=== PATIENT | female | born 2000 | race American Indian/Alaskan Native ===

== ENCOUNTER 2019-09-18 17:29 | Emergency (ER) | payer MEDICAID ==
[2019-09-18 19:48] VITALS: BP 128/75
[2019-09-18] MEDS ORDERED: ACETAMINOPHEN 325 MG TAB PO ONE (19:48)
--- NOTE | 2019-09-18 19:50 | Event Note ---
ED Screening Note Date of service: 09/18/19 Time: 19:46 ED Screening Note: 19 y old female presents with sharp, backache and hip, LMP: Depo provera fver: 102F This initial assessment/diagnostic orders/clinical plan/treatment(s) is/are subject to change based on patients health status, clinical progression and re- assessment by fellow clinical providers in the ED. Further treatment and workup at subsequent clinical providers discretion. Patient/guardian urged not to elope from the ED as their condition may be serious if not clinically assessed and managed. Initial orders include: tylenol in traige ua,upt, acc eval
[2019-09-18] MEDS ORDERED: ACETAMINOPHEN 325 MG TAB ONE (19:51)
[2019-09-18] MEDS ORDERED: SUMAtriptan SUCCINATE 6 MG/0.5 ML INJ SUB-Q ONE (21:44)
--- NOTE | 2019-09-18 21:48 | Emergency Department Report ---
ED General Adult HPI - General Chief complaint: Headache Stated complaint: HEADACHE/BACK PAIN Time Seen by Provider: 09/18/19 21:39 Source: patient Mode of arrival: Ambulatory Limitations: No Limitations - History of Present Illness Initial comments: 19-year-old -[place] female with a known history of migraines comes in for complaint of headache and body aches back pain. Patient reports that she's had a headache and back pain for 6 months since she delivered her baby. Patient also complains of body aches chills and fever with cough and a little sore throat times today. Patient reports that when she takes ibuprofen it makes her headache 10 times worse. Patient states that she usually just suffers from her headaches. Patient did get Tylenol in triage and she reports that did not help with her headache and it made her sweat. Patient denies any nausea vomiting. Recheck patient's pulse 109 by this provider Onset/Timin -: days(s) (fever chills cough and sore throat), month(s) (6 months of headache and back pain since delivery of her baby) Severity scale (0 -10): 9 - Related Data Allergies Allergy/AdvReac Type Severity Reaction Status Date / Time diphenhydramine Allergy Hives Verified 09/18/19 17:49 [From Benadryl] ED Review of Systems ROS: Stated complaint: HEADACHE/BACK PAIN Other details as noted in HPI ED Past Medical Hx - Past Medical History Previous Medical History?: No - Surgical History Past Surgical History?: No - Social History Smoking Status: Current Every Day Smoker Substance Use Type: Marijuana ED Physical Exam - General Limitations: No Limitations ED Course Vital Signs 09/18/19 09/18/19 19:20 19:45 Temperature 103.0 F H 101.9 F H Pulse Rate 114 H 118 H Respiratory 18 18 Rate Blood Pressure 128/75 Blood Pressure 128/75 [Right] O2 Sat by Pulse 95 96 Oximetry - Reevaluation(s) Reevaluation #1: 09/18/19 23:50 Patient reports headache is gone after having Imitrex ED Medical Decision Making - Radiology Data Radiology results: report reviewed Patient: TITO ORTIZ MR#: [id number] : 2000 Acct:[id number] Age/Sex: 19 / F ADM Date: 09/18/19 Loc: ED Attending Dr: Ordering Physician: JESSICA OAKES Date of Service: 09/18/19 Procedure(s): XR chest routine 2V Accession Number(s): [id number] cc: JESSICA OAKES Fluoro Time In Minutes: CHEST 2 VIEWS INDICATION / CLINICAL INFORMATION: cough, fever. COMPARISON: None available. FINDINGS: SUPPORT DEVICES: None. HEART / MEDIASTINUM: No significant abnormality. LUNGS / PLEURA: No significant pulmonary or pleural abnormality. No pneumothorax. ADDITIONAL FINDINGS: No significant additional findings. IMPRESSION: 1. No acute findings. Signer Name: Miah Pope MD Signed: 09/18/2019 11:24 PM Workstation Name: [id number] Transcribed By: RADHA Dictated By: Miah Pope MD Electronically Authenticated By: Miah Pope MD Signed Date/Time: 09/18/192323 DD/ 23 TD/TT: - Medical Decision Making 19-year-old -[place] female with a known history of migraines comes in for complaint of headache and body aches back pain. Patient reports that she's had a headache and back pain for 6 months since she delivered her baby. Patient also complains of body aches chills and fever with cough and a little sore throat times today. Patient reports that when she takes ibuprofen it makes her headache 10 times worse. Patient states that she usually just suffers from her headaches. Patient did get Tylenol in triage and she reports that did not help with her headache and it made her sweat. Patient denies any nausea vomiting. Recheck patient's pulse 109 by this provider. Urinalysis and hCG pending for chest x-ray. Patient be given subcutaneous Imitrex for relief of headache. This most likely has a viral infection. Critical care attestation.: If time is entered above; I have spent that time in minutes in the direct care of this critically ill patient, excluding procedure time. ED Disposition Clinical Impression: Headache, Body aches Disposition: -01 TO HOME OR SELFCARE Is pt being admited?: No Does the pt Need Aspirin: No Condition: Stable Instructions: Acute Headache (ED) Referrals: PRIMARY MD OSITO [Primary Care Provider] - 3-5 Days JUDIE LIU MD [Referring] - 3-5 Days Forms: Work/School Release Form(ED)
[2019-09-18 22:51] LABS: Bilirubin,Urine NEG (Negative); Blood,Urine LG (Negative); Color,Urine Yellow (Yellow); HCG Qualitative,Urine Negative (Negative); Mucus,Urine 2+ /HPF; Protein,Urine <15 mg/dL mg/dL (Negative); Urobilinogen,Urine < 2.0 mg/dL (<2.0)
--- NOTE | 2019-09-18 23:29 | XRay Report ---
CHEST 2 VIEWS INDICATION / CLINICAL INFORMATION: cough, fever. COMPARISON: None available. FINDINGS: SUPPORT DEVICES: None. HEART / MEDIASTINUM: No significant abnormality. LUNGS / PLEURA: No significant pulmonary or pleural abnormality. No pneumothorax. ADDITIONAL FINDINGS: No significant additional findings. IMPRESSION: 1. No acute findings. Signer Name: Miah Pope MD Signed: 09/18/2019 11:24 PM Workstation Name: [id number]
[2019-09-18] MEDS ORDERED: IBUPROFEN 600 MG TAB PO ONE (23:54)
== END 2019-09-19 00:24 | disposition home or self-care (01) ==
LOC: ED 17:29
DX: R51 Headache (principal); M54.9 Dorsalgia, unspecified; F17.200 Nicotine dependence, unspecified, uncomplicated; F12.10 Cannabis abuse, uncomplicated; Z88.8 Allergy status to other drugs, medicaments and biological substances
CPT/HCPCS: 71046; 81001; 81025; 96372; J3030